=== PATIENT | male | born 1985 | race Caucasian/White ===

== ENCOUNTER 2017-06-03 19:11 | Emergency (ER) | payer SELFPAY ==
[~2017-06-03] VITALS: Ht 170.2 cm; Wt 72.0 kg
[2017-06-03 19:21] VITALS: BP 127/85; PULSE 115; RESP 18; TEMP 98; O2SAT 98
== END 2017-06-03 19:30 | disposition left against medical advice (07) ==
LOC: NED 19:11
DX: Z53.21 Procedure and treatment not carried out due to patient leaving prior to being seen by health care provider (principal)
CPT/HCPCS: 99281